=== PATIENT | male | born 1995 | race Caucasian/White ===

== ENCOUNTER 2017-02-23 08:29 | Emergency (ER) | payer OTHER ==
[~2017-02-23] VITALS: Ht 172.7 cm; Wt 75.0 kg
[2017-02-23 08:32] VITALS: BP 127/79; TEMP 98.8
[2017-02-23] MEDS ORDERED: PROAIR HFA0.09 MG/AC IH (09:12)
[2017-02-23] MEDS ORDERED: PREDNISONE20 MG PO (09:12)
[2017-02-23 09:19] VITALS: PULSE 98
== END 2017-02-23 09:20 | disposition home or self-care (01) ==
LOC: COL.ER 08:29
DX: J45.901 Unspecified asthma with (acute) exacerbation (principal); Z87.891 Personal history of nicotine dependence
CPT/HCPCS: J7512

== ENCOUNTER 2022-10-19 17:55 | Emergency (ER) | payer BC ==
[~2022-10-19] VITALS: Ht 172.7 cm; Wt 93.2 kg
[~2022-10-19 17:55] MED LIST: PREDNISONE20 MG PO; PROAIR HFA0.09 MG/AC IH
[2022-10-19 18:06] VITALS: TEMP 97.8
[2022-10-19 19:35] VITALS: BP 132/83; PULSE 75
== END 2022-10-19 19:35 | disposition home or self-care (01) ==
LOC: COL.ER 17:55
DX: S62.512A Displaced fracture of proximal phalanx of left thumb, initial encounter for closed fracture (principal); Z28.310 Unvaccinated for COVID-19; W23.0XXA Caught, crushed, jammed, or pinched between moving objects, initial encounter; Y92.59 Other trade areas as the place of occurrence of the external cause; Y99.0 Civilian activity done for income or pay